=== PATIENT | male | born 1950 | race Caucasian/White ===

== ENCOUNTER 2019-04-28 10:47 | Day surgery (SDC) | payer MEDICARE ==
[2019-04-28 10:10] VITALS: BP 156/84; PULSE 90; RESP 16; TEMP 97.9
[2019-04-28 10:26] LABS: Glucose,Whole Blood 223 mg/dL (75-99)
--- NOTE | 2019-04-28 13:25 | US ---
Discontinued fine-needle aspiration HISTORY: Thyroid nodule, six-month follow-up ultrasound. Hypoechoic nodule measuring 6 mm is noted which shows some increased through transmission and no inte rnal vascularity. No additional thyroid nodule IMPRESSION: Subcentimeter thyroid nodule, follow-up as her original recommendations clarification
== END 2019-04-28 10:49 | disposition home or self-care (01) ==
LOC: RADPROMAIN 10:47
PROVIDERS: ATTEND Surgery
DX: E04.1 Nontoxic single thyroid nodule (principal); Z53.8 Procedure and treatment not carried out for other reasons
CPT/HCPCS: 76536

== ENCOUNTER 2019-09-21 06:58 | Day surgery (SDC) | payer MEDICARE ==
[2019-09-19 09:52] VITALS: BMI 29.4
[~2019-09-21 06:58] MED LIST: LACTATED RINGERS 1,000 ML IV SCH
[2019-09-21 07:31] VITALS: RESP 18; TEMP 97.4
[2019-09-21 07:33] LABS: Glucose,Whole Blood 149 mg/dL (75-99)
[2019-09-21] MEDS ORDERED: LIDOCAINE 1% INJ 10MG/ML (20 ML MDV) ONE (07:40)
[2019-09-21] MEDS ORDERED: PROPOFOL 10 MG/ML 20 ML VIAL IV ONE (07:40)
--- NOTE | 2019-09-21 07:53 | P.GSHP ---
History of Present Illness H&P Date: 09/21/19 Chief Complaint: Internal and external hemorrhoids, screening colonoscopy This a 69-year-old male who's had complaints of internal and external hemorrhoids. Patient's had some bleeding and anal pain. He also presents today for screening colonoscopy. Past Medical History Past Medical History: Diabetes Mellitus, Hyperlipidemia Additional Past Medical History / Comment(s): diarrhea, blood in stools History of Any Multi-Drug Resistant Organisms: None Reported Past Surgical History: Back Surgery Additional Past Surgical History / Comment(s): Back Surgery X3 Past Anesthesia/Blood Transfusion Reactions: No Reported Reaction Smoking Status: Current every day smoker - Past Family History Mother Family Medical History: No Reported History Medications and Allergies Home Medications Medication Instructions Recorded Confirmed Type Simvastatin [Zocor] 20 mg PO DAILY 04/01/19 09/21/19 History metFORMIN HCL 1,000 mg PO AC-BID 04/01/19 09/21/19 History Allergies Allergy/AdvReac Type Severity Reaction Status Date / Time No Known Allergies Allergy Verified 09/19/19 09:47 Surgical - Exam Vital Signs Temp Pulse Resp BP Pulse Ox 97.4 F L 95 18 158/95 94 L 09/21/19 07:17 09/21/19 07:17 09/21/19 07:17 09/21/19 07:17 09/21/19 07:17 - General well developed, well nourished, no distress - Eyes PERRL - ENT normal pinna - Neck no masses - Respiratory normal expansion - Cardiovascular Rhythm: regular Heart Sounds: normal: S1 - Abdomen Abdomen: soft, non tender - Rectum Internal and external hemorrhoids Results - Labs Abnormal Lab Results - Last 24 Hours (Table) 09/21/19 Range/Units 07:27 POC Glucose (mg/dL) 149 H (75-99) mg/dL Assessment and Plan Assessment: Internal and external hemorrhoids. We'll perform screening colonoscopy
[2019-09-21 08:33] VITALS: BP 154/100; PULSE 82
--- NOTE | 2019-09-21 09:25 | P.OP ---
Date of Procedure: 09/21/19 Preoperative Diagnosis: Internal and Hemorrhoids Screening colonoscopy Postoperative Diagnosis: Internal and external hemorrhoids Diverticulosis Colon polyp Procedure(s) Performed: Colonoscopy Anesthesia: MAC Surgeon: Kamran Bernal Pathology: other (Colon polyp) Condition: stable Disposition: PACU Description of Procedure: Patient's placed on the endoscopy table in the lateral position. He received IV sedation. Digital rectal exam was performed which revealed internal and external hemorrhoids. Flexible colonoscope was then placed patient anus and passed rotator entire colon. Ileocecal valve was visualized. The right colon was Normal. In the transverse colon there is a small submucosal polyp suggestive of lipoma this was biopsied. There a few scattered diverticuli in the transverse colon. In the descending; there is more extensive diverticulosis. Scope was then brought back the rectum and this appeared normal. Scope was then withdrawn through the anus which revealed internal/external hemorrhoids. There is no evidence of any hemorrhoidal bleeding.
== END 2019-09-21 08:49 | disposition home or self-care (01) ==
LOC: ORWHC2ENDO 06:58
PROVIDERS: ATTEND Surgery
DX: Z12.11 Encounter for screening for malignant neoplasm of colon (principal); K63.5 Polyp of colon; K57.30 Diverticulosis of large intestine without perforation or abscess without bleeding; K64.4 Residual hemorrhoidal skin tags; K64.8 Other hemorrhoids; E78.5 Hyperlipidemia, unspecified; E11.9 Type 2 diabetes mellitus without complications; F17.210 Nicotine dependence, cigarettes, uncomplicated; Z97.2 Presence of dental prosthetic device (complete) (partial); Z79.84 Long term (current) use of oral hypoglycemic drugs; Z79.899 Other long term (current) drug therapy
CPT/HCPCS: 88305; 45380; J2001; J2704

== ENCOUNTER 2019-10-12 07:14 | Day surgery (SDC) | payer MEDICARE ==
[2019-10-10 15:38] VITALS: BMI 28.7
[~2019-10-12 07:14] MED LIST changes: +DEXAMETHASONE SOD PHOSPHATE 10 MG/ML 1 ML VIAL IV ONE; +HEPARIN SODIUM,PORCINE 5,000 UNIT/ML 1 ML VIAL SQ ONE; +HYDROmorphone 0.5 MG/0.5 ML SYRINGE IVP PRN; +LIDOCAINE 1% 20 ML VIAL (10MG/ML) FOR IV START INTRADERMA PRN; +MIDAZOLAM 2 MG/2 ML VIAL IV PRN; +ONDANSETRON 4 MG/2 ML VIAL IVP ONE; +Pre Op ABX Message 1 EACH MISC MISCELLANE ONE; +SCOPOLAMINE 1.5MG/72HR PATCH TRANSDERM ONE
[2019-10-12 07:37] VITALS: TEMP 97.4
[2019-10-12 08:07] LABS: Glucose,Whole Blood 156 mg/dL (75-99)
--- NOTE | 2019-10-12 08:45 | P.GSHP ---
History of Present Illness H&P Date: 10/12/19 Chief Complaint: Hemorrhoids Is a 69-year-old male who's had issues with rectal bleeding from internal and external hemorrhoids. Patient resents today for hemorrhoidectomy. Past Medical History Past Medical History: Diabetes Mellitus, Hyperlipidemia Additional Past Medical History / Comment(s): diarrhea, blood in stools History of Any Multi-Drug Resistant Organisms: None Reported Past Surgical History: Back Surgery Additional Past Surgical History / Comment(s): Back Surgery X3 Past Anesthesia/Blood Transfusion Reactions: No Reported Reaction Smoking Status: Current every day smoker - Past Family History Mother Family Medical History: No Reported History Medications and Allergies Home Medications Medication Instructions Recorded Confirmed Type Simvastatin [Zocor] 20 mg PO DAILY 04/01/19 10/10/19 History metFORMIN HCL 1,000 mg PO AC-BID 04/01/19 10/10/19 History Allergies Allergy/AdvReac Type Severity Reaction Status Date / Time No Known Allergies Allergy Verified 10/10/19 15:34 Surgical - Exam Vital Signs Temp Pulse Resp BP Pulse Ox 97.4 F L 81 18 140/88 96 10/12/19 07:36 10/12/19 07:36 10/12/19 07:36 10/12/19 07:36 10/12/19 07:36 - General well developed, well nourished, no distress - Eyes PERRL - ENT normal pinna - Neck no masses - Respiratory normal expansion - Cardiovascular Rhythm: regular - Abdomen Abdomen: soft, non tender Results - Labs Abnormal Lab Results - Last 24 Hours (Table) 10/12/19 Range/Units 07:59 POC Glucose (mg/dL) 156 H (75-99) mg/dL Assessment and Plan Assessment: Hemorrhoids We'll perform embolectomy.
[2019-10-12] MEDS ORDERED: fentaNYL (PF) 50 MCG/ML 2 ML AMP ONE (09:01)
[2019-10-12] MEDS ORDERED: MIDAZOLAM 2 MG/2 ML VIAL ONE (09:01)
[2019-10-12] MEDS ORDERED: PROPOFOL 10 MG/ML 20 ML VIAL IV ONE (09:01)
[2019-10-12] MEDS ORDERED: KETAMINE 10 MG/ML 20 ML VIAL ONE (09:01)
[2019-10-12] MEDS ORDERED: GLYCOPYRROLATE 0.2 MG/ML 2 ML VIAL ONE (09:01)
[2019-10-12] MEDS ORDERED: BUPIVACAINE (PF) 0.25% 30 ML VIAL SQ ONE ×2 (09:25)
[2019-10-12] MEDS ORDERED: GELATIN SPONGE,ABSORB (SMALL) 1 EACH SPONGE TOPICAL ONE ×3 (09:34)
[2019-10-12 10:30] VITALS: BP 156/95; PULSE 92; RESP 18
--- NOTE | 2019-10-12 10:43 | P.OP ---
Date of Procedure: 10/12/19 Preoperative Diagnosis: Internal and external hemorrhoids Postoperative Diagnosis: Internal and external hemorrhoids Procedure(s) Performed: Internal and Hemorrhoidectomy Anesthesia: MICHELLE NOLASCO Surgeon: Kamran Bernal Estimated Blood Loss (ml): 5 Pathology: other (Internal and external hemorrhoids) Condition: stable Disposition: PACU Description of Procedure: The patient's placed on the operating table in the prone position. He received IV sedation. His anus was prepped and draped in usual sterile fashion. The patient had a large left hemorrhoidal column. He also had a large right posterior hemorrhoid column. The anal retractors placed in the anus and then using a pair of Allis clamps the hemorrhoidal column was grasped. Using Harmonic scissors the hemorrhoidal column was excised. The right posterior hemorrhoidal column was dissected in identical fashion. The mucosa was then reapproximated using 3-0 Vicryl suture. There is no bleeding seen. Patient top she will was sent to recovery room stable condition.
== END 2019-10-12 10:55 | disposition home or self-care (01) ==
LOC: OR 07:14
PROVIDERS: ATTEND Surgery
DX: K64.4 Residual hemorrhoidal skin tags (principal); K64.8 Other hemorrhoids; E11.9 Type 2 diabetes mellitus without complications; E78.5 Hyperlipidemia, unspecified; F17.210 Nicotine dependence, cigarettes, uncomplicated; Z79.84 Long term (current) use of oral hypoglycemic drugs; Z79.899 Other long term (current) drug therapy
CPT/HCPCS: 88304; 46260; J2250; J1644; J1100; J2405; J3010; J2704